=== PATIENT | male | born 1990 | race Caucasian/White ===

== ENCOUNTER 2019-01-22 15:12 | Emergency (ER) | payer MEDICARE, MEDICAID ==
[2019-01-22] MEDS ORDERED: ASPIRIN 81 MG TABLET, CHEWABLE PO ONE (15:39)
--- NOTE | 2019-01-22 15:40 | ER Document Report ---
ED Medical Screen (RME) - General Chief Complaint: Dizziness Stated Complaint: LIGHTHEADED Time Seen by Provider: 01/22/19 15:34 Primary Care Provider: LEROY BETANCUR MD [Primary Care Provider] - Follow up as needed Notes: 28 years old male with a history of seizure disorder, attention deficit mild mental retardation, on Lamictal presents today with chest pain chest tightness and arm numbness. He was seen by the neurologist today and referred back here. He is very slow to speak very poor historian. Most of the history obtained from the family. - Related Data Allergies/Adverse Reactions: No Known Allergies Allergy (Unverified 01/22/19 15:17) Physical Exam - Vital signs Vitals: Temp Pulse Resp BP Pulse Ox 98.9 F 72 16 140/72 H 100 01/22/19 15:21 01/22/19 15:21 01/22/19 15:21 01/22/19 15:21 01/22/19 15:21 Course - Vital Signs Vital signs: Temp Pulse Resp BP Pulse Ox 98.9 F 72 16 140/72 H 100 01/22/19 15:21 01/22/19 15:21 01/22/19 15:21 01/22/19 15:21 01/22/19 15:21 Doctor's Discharge - Discharge Referrals: LEROY BETANCUR MD [Primary Care Provider] - Follow up as needed
[2019-01-22 16:31] LABS: ABSOLUTE BASOPHILS # (AUTO) 0.1 10^3/uL (0.0-0.2); ABSOLUTE EOSINOPHILS # (AUTO) 0.2 10^3/uL (0.0-0.6); ABSOLUTE LYMPHOCYTES (AUTO) 2.9 10^3/uL (0.5-4.7); ABSOLUTE MONOCYTES (AUTO) 0.9 10^3/uL (0.1-1.4); ABSOLUTE NEUT (AUTO) 7.8 10^3/uL (1.7-8.2); EOSINOPHILS % (AUTO) 1.7 % (0-6); HEMATOCRIT 43.2 % (37.9-51.0); HEMOGLOBIN 14.7 g/dL (13.5-17.0); LYMPHOCYTES % (AUTO) 24.6 % (13-45); MEAN CORPUSCULAR HEMOGLOBIN 28.8 pg (27.0-33.4); MEAN CORPUSCULAR HGB CONC 34.1 g/dL (32.0-36.0); MEAN CORPUSCULAR VOLUME 85 fl (80-97); MONOCYTES % (AUTO) 7.8 % (3-13); PLATELET COUNT 238 10^3/uL (150-450); RED CELL DISTRIBUTION WIDTH 13.4 % (11.5-14.0); SEGMENTED NEUTROPHILS % (AUTO) 64.9 % (42-78); TOTAL CELLS COUNTED % (AUTO) 100 %; WHITE BLOOD COUNT 11.9 10^3/uL (4.0-10.5)
--- NOTE | 2019-01-22 16:33 | RADIOLOGY REPORT (SQ) ---
EXAM DESCRIPTION: CHEST SINGLE VIEW COMPLETED DATE/TIME: 01/22/2019 4:24 pm REASON FOR STUDY: Chest pain COMPARISON: None. EXAM PARAMETERS: NUMBER OF VIEWS: One view. TECHNIQUE: Single frontal radiographic view of the chest acquired. RADIATION DOSE: NA LIMITATIONS: None. FINDINGS: LUNGS AND PLEURA: No opacities, masses or pneumothorax. No pleural effusion. MEDIASTINUM AND HILAR STRUCTURES: No masses. Contour normal. HEART AND VASCULAR STRUCTURES: Heart normal in size. Normal vasculature. BONES: No acute findings. HARDWARE: None in the chest. OTHER: No other significant finding. IMPRESSION: NO ACUTE RADIOGRAPHIC FINDING IN THE CHEST. TECHNICAL DOCUMENTATION: JOB ID: [id number] [employer]- All Rights Reserved Reading location - IP/workstation name: [email or web address]
[2019-01-22 16:55] LABS: ALANINE AMINOTRANSFERASE 18 U/L (21-72); ALBUMIN 4.9 g/dL (3.5-5.0); ALKALINE PHOSPHATASE 94 U/L (38-126); ANION GAP 12 (5-19); ASPARTATE AMINO TRANSFERASE 48 U/L (17-59); BILIRUBIN,DIRECT 0.3 mg/dL (0.0-0.4); BILIRUBIN,TOTAL 0.4 mg/dL (0.2-1.3); BLOOD UREA NITROGEN 14 mg/dL (7-20); CALCIUM 10.5 mg/dL (8.4-10.2); CARBON DIOXIDE 28 mmol/L (22-30); CHLORIDE 104 mmol/L (98-107); CREATINE KINASE 167 U/L (55-170); GLUCOSE 91 mg/dL (75-110); POTASSIUM 4.2 mmol/L (3.6-5.0); SODIUM 143.5 mmol/L (137-145); TOTAL PROTEIN 8.7 g/dL (6.3-8.2)
[2019-01-22 17:06] LABS: CREATINE KINASE MB 0.54 ng/mL (<4.55)
[2019-01-22 17:08] LABS: TROPONIN I < 0.012 ng/mL
--- NOTE | 2019-01-22 19:29 | ER Document Report ---
ED General - General Chief Complaint: Dizziness Stated Complaint: LIGHTHEADED Time Seen by Provider: 01/22/19 15:34 Primary Care Provider: LEROY BETANCUR MD [Primary Care Provider] - Follow up as needed Cannot obtain history due to: Mentally challenged Notes: Patient is a 28-year-old male with past medical history of mental retardation, seizures, presents with an episode today in which he became shaky particularly bilateral upper extremity's and felt coolness across his chest. He was seen by his neurologist, referred to an urgent care for subsequent referred him to the emergency department. At the time of my assessment the patient denies any complaints. Due to the patient's MR, somewhat difficult to obtain history and most of this is provided by his mother. The patient states that he denies any symptoms currently. States that he is unsure what happened earlier. No history of similar symptoms in the past. Nothing seemed to improve or worsen his symptoms when present. He did not lose consciousness or have any seizure event at any time. He has no cardiac history. - Related Data Allergies/Adverse Reactions: No Known Allergies Allergy (Unverified 01/22/19 15:17) Past Medical History - General Information source: Patient, Parent - Social History Smoking Status: Never Smoker Chew tobacco use (# tins/day): No Frequency of alcohol use: None Drug Abuse: None Lives with: Other - jail Family History: Reviewed & Not Pertinent Patient has suicidal ideation: No Patient has homicidal ideation: No Neurological Medical History: Reports: Hx Seizures Renal/ Medical History: Denies: Hx Peritoneal Dialysis Psychiatric Medical History: Reports: Hx Attention Deficit Hyperactivity Disorder Past Surgical History: Reports: Hx Tonsillectomy - ADNOIDS Review of Systems - Review of Systems Notes: Constitutional: Negative for fever. HENT: Negative for sore throat. Eyes: Negative for visual changes. Cardiovascular: Negative for chest pain. Respiratory: Negative for shortness of breath. Gastrointestinal: Negative for abdominal pain, vomiting or diarrhea. Genitourinary: Negative for dysuria. Musculoskeletal: Negative for back pain. Skin: Negative for rash. Neurological: Positive for tingling, coolness of the chest 10 point ROS negative except as marked above and in HPI. Physical Exam - Vital signs Vitals: Temp Pulse Resp BP Pulse Ox 98.9 F 72 16 140/72 H 100 01/22/19 15:21 01/22/19 15:21 01/22/19 15:21 01/22/19 15:21 01/22/19 15:21 Interpretation: Normal Notes: PHYSICAL EXAMINATION: GENERAL: Well-appearing, well-nourished and in no acute distress. HEAD: Atraumatic, normocephalic. EYES: Pupils equal round and reactive to light, extraocular movements intact, sclera anicteric, conjunctiva are normal. ENT: nares patent, oropharynx clear without exudates. Moist mucous membranes. NECK: Normal range of motion, supple without lymphadenopathy LUNGS: Breath sounds clear to auscultation bilaterally and equal. No wheezes rales or rhonchi. HEART: Regular rate and rhythm without murmurs ABDOMEN: Soft, nontender, normoactive bowel sounds. No guarding, no rebound. No masses appreciated. EXTREMITIES: Normal range of motion, no pitting or edema. No cyanosis. NEUROLOGICAL: Face symmetric. Tongue protrudes midline. Extraocular motions intact. Pupils are 2 mm and equally reactive. Normal speech, normal gait. 5 out of 5 strength in both the distal and proximal upper and lower extremities bilaterally. Sensation is grossly intact throughout. Finger to nose testing normal. Pronator drift normal. PSYCH: Alert, oriented to person SKIN: Warm, Dry, normal turgor, no rashes or lesions noted. Course - Vital Signs Vital signs: Temp Pulse Resp BP Pulse Ox 98.9 F 75 9 L 142/82 H 99 01/22/19 15:21 01/22/19 18:43 01/22/19 19:01 01/22/19 19:01 01/22/19 19:01 - Laboratory Result Diagrams: 01/22/19 16:10 01/22/19 16:10 Laboratory results interpreted by me: 01/22/19 01/22/19 16:10 16:10 WBC 11.9 H Calcium 10.5 H ALT 18 L Total Protein 8.7 H - Diagnostic Test Radiology reviewed: Image reviewed, Reports reviewed Radiology results interpreted by me: 01/22/19 19:30 Chest x-ray: No acute infiltrate or pneumothorax - EKG Interpretation by Me Additional EKG results interpreted by me: 01/22/19 19:30 Sinus rhythm, rate 80. No ST elevations or depressions. QTC is 420. Discharge - Discharge Clinical Impression: Paresthesia of arm, Chest discomfort Epilepsy Qualifiers: Epilepsy type: unspecified Intractability: not intractable Status epilepticus: without status epilepticus Qualified Code(s): G40.909 - Epilepsy, unspecified, not intractable, without status epilepticus Condition: Good Disposition: HOME, SELF-CARE Additional Instructions: Your labs and assessment today are reassuring. The exact cause of your symptoms is uncertain but does not appear to be from any life-threatening cause. Return if you develop severe chest pain, pass out, become unable to use an arm or leg, have difficulty speaking or have any other symptoms that are worrisome to you. Follow-up with your general physician within the next 1-2 days. Referrals: LEROY BETANCUR MD [Primary Care Provider] - Follow up as needed
[2019-01-22 20:01] VITALS: BP 139/90
--- NOTE | 2019-01-22 22:14 | EKG REPORT ---
SEVERITY:- OTHERWISE NORMAL ECG - SINUS RHYTHM BORDERLINE LEFT AXIS DEVIATION : Confirmed by: Melo So 22-Jan-2019 22:13:07
== END 2019-01-22 20:08 | disposition home or self-care (01) ==
LOC: ER 15:12
DX: R20.2 Paresthesia of skin (principal); G40.909 Epilepsy, unspecified, not intractable, without status epilepticus; R42 Dizziness and giddiness; R07.9 Chest pain, unspecified
CPT/HCPCS: 93005; 99284; 36415; 82553; 82550; 85025; 80053; 84484; 71045; 93010; A9270

== ENCOUNTER → 2019-01-26 | Outpatient (CLI) | payer MEDICARE, MEDICAID ==
[2019-01-26 12:53] LABS: HEMATOCRIT 44.4 % (37.9-51.0); HEMOGLOBIN 15.2 g/dL (13.5-17.0); MEAN CORPUSCULAR HEMOGLOBIN 28.9 pg (27.0-33.4); MEAN CORPUSCULAR HGB CONC 34.3 g/dL (32.0-36.0); MEAN CORPUSCULAR VOLUME 84 fl (80-97); PLATELET COUNT 217 10^3/uL (150-450); RED BLOOD COUNT 5.27 10^6/uL (4.35-5.55); RED CELL DISTRIBUTION WIDTH 13.7 % (11.5-14.0)
[2019-01-26 13:20] LABS: ALANINE AMINOTRANSFERASE 24 U/L (21-72); ALBUMIN 5.1 g/dL (3.5-5.0); ALKALINE PHOSPHATASE 93 U/L (38-126); ANION GAP 13 (5-19); ASPARTATE AMINO TRANSFERASE 26 U/L (17-59); BILIRUBIN,DIRECT 0.2 mg/dL (0.0-0.4); BILIRUBIN,TOTAL 0.8 mg/dL (0.2-1.3); BLOOD UREA NITROGEN 9 mg/dL (7-20); CALCIUM 10.7 mg/dL (8.4-10.2); CARBON DIOXIDE 28 mmol/L (22-30); CHLORIDE 102 mmol/L (98-107); GLUCOSE 87 mg/dL (75-110); POTASSIUM 4.5 mmol/L (3.6-5.0); SODIUM 142.5 mmol/L (137-145); TOTAL PROTEIN 8.8 g/dL (6.3-8.2)
== END ==
LOC: OD 11:32
PROVIDERS: ATTEND Specialist
DX: G40.89 Other seizures (principal); Z79.899 Other long term (current) drug therapy
CPT/HCPCS: 36415; 80053; 80175; 85027

== ENCOUNTER → 2020-11-24 | Outpatient (CLI) | payer MEDICARE, MEDICAID ==
[2020-11-24 10:50] LABS: ABSOLUTE EOSINOPHILS # (AUTO) 0.2 10^3/uL (0.0-0.6); ABSOLUTE LYMPHOCYTES (AUTO) 3.5 10^3/uL (0.5-4.7); ABSOLUTE MONOCYTES (AUTO) 0.6 10^3/uL (0.1-1.4); ABSOLUTE NEUT (AUTO) 5.5 10^3/uL (1.7-8.2); BASOPHILS % (AUTO) 0.4 % (0-2); EOSINOPHILS % (AUTO) 2.5 % (0-6); HEMATOCRIT 41.3 % (37.9-51.0); LYMPHOCYTES % (AUTO) 35.2 % (13-45); MEAN CORPUSCULAR HEMOGLOBIN 28.7 pg (27.0-33.4); MEAN CORPUSCULAR HGB CONC 33.9 g/dL (32.0-36.0); MEAN CORPUSCULAR VOLUME 85 fl (80-97); MONOCYTES % (AUTO) 5.6 % (3-13); PLATELET COUNT 221 10^3/uL (150-450); RED BLOOD COUNT 4.88 10^6/uL (4.35-5.55); RED CELL DISTRIBUTION WIDTH 13.5 % (11.5-14.0); SEGMENTED NEUTROPHILS % (AUTO) 56.3 % (42-78); TOTAL CELLS COUNTED % (AUTO) 100 %; WHITE BLOOD COUNT 9.8 10^3/uL (4.0-10.5)
[2020-11-24 11:20] LABS: ALBUMIN 4.4 g/dL (3.5-5.0); ALKALINE PHOSPHATASE 80 U/L (38-126); ANION GAP 14 (5-19); ASPARTATE AMINO TRANSFERASE 36 U/L (17-59); BILIRUBIN,DIRECT 0.2 mg/dL (0.0-0.4); BILIRUBIN,TOTAL 0.5 mg/dL (0.2-1.3); BLOOD UREA NITROGEN 12 mg/dL (7-20); CARBON DIOXIDE 24 mmol/L (22-30); CHLORIDE 103 mmol/L (98-107); GLUCOSE 136 mg/dL (75-110); TOTAL PROTEIN 7.5 g/dL (6.3-8.2)
== END ==
LOC: OD 09:06
PROVIDERS: ATTEND Nurse Practitioner Family
DX: R56.9 Unspecified convulsions (principal)
CPT/HCPCS: 36415; 80053; 80175; 85025